=== PATIENT | male | born 1960 | race Caucasian/White ===

== ENCOUNTER 2018-09-11 00:03 | Emergency (ER) | payer SELFPAY ==
[~2018-09-11] VITALS: Ht 175.3 cm; Wt 82.0 kg
[~2018-09-11 00:03] MED LIST: NAPR-985 PO
[2018-09-11 00:23] VITALS: BP 149/89; PULSE 99; RESP 19; Ht 175.3 cm; Wt 82.0 kg
[2018-09-11] MEDS ORDERED: KETOROLAC 30 MG INJ IM STA (00:44)
--- NOTE | 2018-09-11 01:54 | ERD ---
ER Documentation Chief Complaint Chief Complaint bib self, cc: right knee pain due to gout, does not have gout medication HPI 57-year-old male presents emergency department complaining of right knee pain with redness and warmth secondary to gout flare. His pain is 10/10 in severity and worse with walking. He has taken allopurinol in the past but no longer has this medication. He tried no medicine for relief of symptoms. He denies any falls or trauma or other symptoms or injuries at this time. He denies any fevers. ROS All systems reviewed and are negative except as per history of present illness. Medications Home Meds Active Scripts Naproxen* (Naprosyn*) 500 Mg Tablet, 500 MG PO BID PRN for PAIN AND/OR INFLAMMATION, #30 TAB Prov:BRYCE DUQUE PA-C 09/11/18 Allergies Allergies: Coded Allergies: No Known Allergy (Unverified , 09/11/18) PMhx/Soc Medical and Surgical Hx: pt denies Surgical Hx Hx Miscellaneous Medical Probl: Yes (GOUT) Hx Alcohol Use: No Hx Substance Use: No Hx Tobacco Use: No Smoking Status: Never smoker FmHx Family History: No diabetes Physical Exam Vitals Vital Signs Date Temp Pulse Resp B/P (MAP) Pulse Ox O2 O2 Flow FiO2 Time Delivery Rate 09/11/18 98.7 99 19 149/89 100 00:23 (109) Physical Exam Const: No acute distress Head: Atraumatic Eyes: Normal Conjunctiva ENT: Normal External Ears, Nose and Mouth. Neck: Full range of motion. No meningismus. Resp: Clear to auscultation bilaterally Cardio: Regular rate and rhythm, no murmurs Abd: Soft, non tender, non distended. Normal bowel sounds Skin: No petechiae or rashes Back: No midline or flank tenderness Ext: Warmth and diffuse tenderness palpation of the right knee. Limited range of motion secondary to pain. No lymphatic streaking. Neur: Awake and alert Psych: Normal Mood and Affect Results 24 hrs Current Medications Medications Dose Sig/Essence Start Time Status Last (Trade) Ordered Route PRN Stop Time Admin Dose Reason Admin Ketorolac 30 mg ONCE STAT 09/11/18 DC 09/11/18 Tromethamine IM 00:44 09/11/18 00:50 (Toradol) 00:45 Procedures/MDM 57-year-old male presents the emergency department with signs and symptoms most consistent with acute gout flare. Patient was administered Toradol in the department with improvement of symptoms. Patient's extremity symptoms have stabilized while they have been evaluated in the department and are appropriate for outpatient follow up. No evidence of compartment syndrome, neurologic injury, vascular injury, open joint, open fracture, tendon laceration, or foreign body. No evidence of life-threatening pathology at time of discharge. Pt/family in agreement with discharge plan/diagnosis. Pt/family advised to return immediately with any new or worsening symptoms. Follow-up with primary care physician within the next 1-2 days. Patient's blood pressure was elevated (>120/80) but appears stable without evidence of hypertension emergency or urgency. The patient is to follow-up and pursue outpatient monitoring and therapy with their primary care physician within 1 week and return immediately if they have any new, worsening, or concerning symptoms. Disclaimer: Inadvertent spelling and grammatical errors are likely due to EHR/dictation software use and do not reflect on the overall quality of patient care. Also, please note that the electronic time recorded on this note does not necessarily reflect the actual time of the patient encounter. Departure Diagnosis: Primary Impression: Gout flare Condition: Fair Patient Instructions: Treating Gout Attacks, Gout Diet [facility]: [facility] Usted se muñoz hecho un examen mdico de control que le indica que no est en nain condicin que requiera tratamiento urgente en el Departamento de Emergencia. Un estudio ms profundo y el tratamiento de mcdaniel condicin pueden esperar sin ningn riesgo hasta que usted sea atendida/o en el consultorio de mcdaniel mdico o nain clnica. Es responsabilidad suya arreglar nain jomar para el seguimiento del fiordaliza. MANEJO DE CONDICIONES NO URGENTES EN EL FUTURO 1) Si usted tiene un mdico de atencin primaria: Usted debera llamar a mcdaniel mdico de atencin primaria antes de venir al departamento de emergencia. Despus de las horas de consultorio, mcdaniel doctor o mcdaniel asociado/a est disponible por telfono. El mdico o enfermero de ty en el servicio telefnico puede asesorarle por eva medio para atender el problema, o fiordaliza contrario se puede programar nain jomar. 2) Si usted no tiene un mdico de atencin primaria: Llame al mdico o clnica de referencia que aparece abajo radha las horas de consultorio para hacer nain jomar para que le vean. CLINICAS: [facility] [id number] [facility] [id number] [facility] [phone] [place] [address] [phone] [facility]. [facility] [phone] [id number] [facility]. [phone] [address] Additional Instructions: Llame al doctor MAANA y felisha nain JOMAR PARA DENTRO DE 1-2 MENDES.Dgale a la secretaria que nosotros le instruimos hacer esta jomar.Avise o llame si mcdaniel condicin se empeora antes de la jomar. Regresa aqui si peor o no mejor. BRYCE DUQUE PA-C Sep 11, 2018 01:54
== END 2018-09-11 01:18 | disposition home or self-care (01) ==
LOC: FTE 00:03
DX: M10.9 Gout, unspecified (principal)
CPT/HCPCS: 96372; 99284; J1885